=== PATIENT | female | born 1955 | race Caucasian/White ===

== ENCOUNTER 2018-07-28 15:36 | Emergency (ER) | payer OTHER ==
[2018-07-28 15:46] VITALS: BP 141/60
--- NOTE | 2018-07-28 15:50 | ED Physician Documentation ---
PD HPI UPPER EXT INJURY - Stated complaint Stated Complaint: RT FINGERS LAC - Chief complaint Chief Complaint: Laceration - History obtained from History obtained from: Patient - History of Present Illness Location: Right, Finger (index) Type of injury: Laceration (cutting potatoes) Where injury occurred: Home Timing - onset: Today Timing - details: Abrupt onset Worsened by: Palpating Associated symptoms: No: Weakness, Numbness Similar symptoms before: Has not had sx before Recently seen: Not recently seen Review of Systems Skin: reports: Laceration (s) Neurologic: denies: Focal weakness, Numbness PD PAST MEDICAL HISTORY - Past Medical History Cardiovascular: None Respiratory: None - Allergies Allergies/Adverse Reactions: Allergies Allergy/AdvReac Type Severity Reaction Status Date / Time No Known Drug Allergies Allergy Verified 07/28/18 15:45 PD ED PE NORMAL - Vitals Vital signs reviewed: Yes - General General: Alert and oriented X 3, No acute distress, Well developed/nourished - Derm Derm: Normal color, Warm and dry - Extremities Extremities: Other (right index finger with 2 cm laceration that still has some bleeding. Down to fatty tissue. Not involving nailbed nor crossing DIP. ) - Neuro Neuro: No motor deficit, No sensory deficit Procedures - Laceration (location) riht index finger Length in cm: 2 Wound type: Curved, Into subcut fat, Clean Neurovascular status: Sensory intact, Motor intact, Vascular intact Tendon involvement: No: Tendon Injury Anesthesia: Lidocaine 2% Wound Preparation: Irrigated copiously NS Skin layer closure: Nylon, Interrupted, Size #-0 - enter number (4) Other: Patient tolerated well, No complications, Neurovascular intact, Dressing applied, Tetanus UTD Complexity: Simple Departure - Departure Disposition: 01 Home, Self Care Clinical Impression: Laceration of index finger Qualifiers: Encounter type: initial encounter Damage to nail status: without damage Foreign body presence: without foreign body Laterality: right Qualified Code(s) : S61.210A - Laceration without foreign body of right index finger without damage to nail, initial encounter Condition: Stable Record reviewed to determine appropriate education?: Yes Instructions: ED Laceration Hand Follow-Up: TEREZA LUNDY PA-C [Primary Care Provider] - Comments: It is okay to wash and shower. Clean off the wound twice a day with soap and water, or peroxide and water. Apply some antibiotic ointment to it to keep it moist. Also to watch for signs of infection such as purulence, redness or increasing pain. Return to your primary care or the ER at the specified time for suture removal. Suture removal 9-10 days. For the thumb, keep the area clean and dry and allow the Steri-Strips to fall off on their own after a few days. That should be adequate for that small flap. Discharge Date/Time: 07/28/18 16:27
== END 2018-07-28 16:27 | disposition home or self-care (01) ==
LOC: ED 15:36
DX: S61.210A Laceration without foreign body of right index finger without damage to nail, initial encounter (principal); W27.4XXA Contact with kitchen utensil, initial encounter; Y93.G1 Activity, food preparation and clean up; Y92.009 Unspecified place in unspecified non-institutional (private) residence as the place of occurrence of the external cause
CPT/HCPCS: 12001; 99282; 99283

== ENCOUNTER 2022-03-13 11:45 | Outpatient (CLI) | payer MEDICARE, OTHER ==
[2022-03-13 18:54] LABS: BASOPHILS % (AUTO) 0.5 %; EOSINOPHILS # (AUTO) 0.1 10^3/uL (0.0-0.7); EOSINOPHILS % (AUTO) 1.6 %; HCT - HEMATOCRIT 40.7 % (37.0-47.0); HGB - HEMOGLOBIN 13.1 g/dL (12.0-16.0); LYMPHOCYTES # (AUTO) 3.3 10^3/uL (1.5-3.5); LYMPHOCYTES % (AUTO) 44.2 %; MEAN CORPUSCULAR HEMOGLOBIN 29.8 pg (27.0-31.0); MEAN CORPUSCULAR HGB CONC 32.2 g/dL (32.0-36.0); MEAN CORPUSCULAR VOLUME 92.7 fL (81.0-99.0); MEAN PLATELET VOLUME 10.6 fL (7.9-10.8); MONOCYTES # (AUTO) 0.5 10^3/uL (0.0-1.0); MONOCYTES % (AUTO) 6.6 %; NEUTROPHILS # (AUTO) 3.5 10^3/uL (1.5-6.6); NEUTROPHILS % (AUTO) 46.7 %; PLT - PLATELET COUNT 268 10^3/uL (130-450); RED BLOOD COUNT 4.39 10^6/uL (4.20-5.40); RED CELL DISTRIBUTION WIDTH 13.5 % (12.0-15.0); WHITE BLOOD COUNT 7.5 x10^3/uL (4.8-10.8)
[2022-03-13 19:26] LABS: ALBUMIN 3.8 g/dL (3.2-5.5); ALBUMIN/GLOBULIN RATIO 1.1 (1.0-2.2); ALKALINE PHOSPHATASE 83 IU/L (42-121); ALT ALANINE AMINOTRANSFERASE 23 IU/L (10-60); AST ASPARTATE AMINOTRANSFERASE 24 IU/L (10-42); BILIRUBIN,TOTAL 0.6 mg/dL (0.2-1.0); BUN - BLOOD UREA NITROGEN 8 mg/dL (6-20); CALCIUM 9.2 mg/dL (8.5-10.3); CARBON DIOXIDE - CO2 28 mmol/L (21-32); CHLORIDE 106 mmol/L (101-111); CHOL/HDL RATIO 1.7 (<4.4); CHOLESTEROL 139 mg/dL; CREATININE 0.9 mg/dL (0.4-1.0); GFR - MDRD 63 (>89); GLUCOSE 92 mg/dL (70-100); HDL CHOLESTEROL 83 mg/dL; LDL CHOLESTEROL,CALCULATED 44 mg/dL; LDL/HDL RATIO 0.5 (<4.4); POTASSIUM 3.8 mmol/L (3.5-5.0); SODIUM 143 mmol/L (135-145); TOTAL PROTEIN 7.2 g/dL (6.7-8.2); TRIGLYCERIDES 60 mg/dL; VLDL CHOLESTEROL 12 mg/dL
[2022-03-13 20:27] LABS: THYROID STIMULATING HORMONE 3.4 uIU/mL (0.34-5.60)
== END 2022-03-13 11:46 | disposition home or self-care (01) ==
LOC: LAB.N 11:45
PROVIDERS: ATTEND Nurse Practitioner Family
DX: E66.9 Obesity, unspecified (principal); E78.5 Hyperlipidemia, unspecified; Z13.1 Encounter for screening for diabetes mellitus; Z79.899 Other long term (current) drug therapy
CPT/HCPCS: 36415; 80053; 80061; 81599; 83036; 83721; 84443; 85025

== ENCOUNTER 2022-03-31 12:49 | Outpatient (CLI) | payer MEDICARE, OTHER ==
--- NOTE | 2022-03-31 14:07 | DEXA Report ---
PROCEDURE: Dexa Spine and/or Hip INDICATIONS: POST MENOPAUSAL TECHNIQUE: Dual energy x-ray absorptiometry (DXA) was performed on a Jeeran System. Regions measur ed are the AP Spine, femoral neck, and if needed forearm. COMPARISON: None. FINDINGS: Lumbar Spine: Bone Mineral Density 1.18 g/cm/cm,T score 0.1, normal Left Hip: Bone Mineral Density 0.896 g/cm/cm,T score -0.9, normal Left Femoral Neck: Bone Mineral Density 0.846 g/cm/cm, T score -1.4, osteopenia (T score greater or equal to -1.0: NORMAL) (T score from -1.1 to -2.4: OSTEOPENIA) (T score less than or equal to -2.5 to: OSTEOPOROSIS) Impression: Bone mineral density as detailed above. Patients with diagnosis of osteoporosis or osteopenia should have regular bone mineral density assess ment. For those eligible for Medicare, routine testing is allowed once every 2 years. Testing frequ ency can be increased for patients who have rapidly progressing disease or for those who are receivin g medical therapy to restore bone mass. Reviewed by: Shad Espino MD on 03/31/2022 2:06 PM PDT Approved by: Shad Espino MD on 03/31/2022 2:06 PM PDT Station ID: [id number]
== END 2022-03-31 12:50 | disposition home or self-care (01) ==
LOC: DI 12:49
PROVIDERS: ATTEND Nurse Practitioner Family
DX: Z13.820 Encounter for screening for osteoporosis (principal); Z78.0 Asymptomatic menopausal state; M85.88 Other specified disorders of bone density and structure, other site

== ENCOUNTER 2022-09-23 08:00 | Outpatient (CLI) | payer MEDICARE, OTHER ==
[2022-09-23 22:34] LABS: INFLUENZA A- RESP PCR PANEL NOT DETECTED; INFLUENZA B - RESP PCR PANEL NOT DETECTED; RSV- RESP PCR PANEL NOT DETECTED
[2022-09-23 22:37] LABS: SARS-CoV-2 -RESP PCR PANEL DETECTED
== END 2022-09-23 23:59 | disposition home or self-care (01) ==
LOC: LAB.N 08:00
PROVIDERS: ATTEND Physician Assistant
DX: U07.1 COVID-19 (principal)
CPT/HCPCS: 87637

== ENCOUNTER 2023-03-16 10:27 | Outpatient (CLI) | payer MEDICARE, OTHER ==
[2023-03-16 12:16] LABS: BASOPHILS # (AUTO) 0.1 10^3/uL (0.0-0.1); BASOPHILS % (AUTO) 0.7 %; EOSINOPHILS # (AUTO) 0.3 10^3/uL (0.0-0.7); EOSINOPHILS % (AUTO) 3.5 %; HCT - HEMATOCRIT 40.1 % (37.0-47.0); HGB - HEMOGLOBIN 12.8 g/dL (12.0-16.0); LYMPHOCYTES # (AUTO) 3.5 10^3/uL (1.5-3.5); LYMPHOCYTES % (AUTO) 47.1 %; MEAN CORPUSCULAR HEMOGLOBIN 29.4 pg (27.0-31.0); MEAN CORPUSCULAR HGB CONC 31.9 g/dL (32.0-36.0); MEAN PLATELET VOLUME 10.1 fL (7.9-10.8); MONOCYTES # (AUTO) 0.5 10^3/uL (0.0-1.0); MONOCYTES % (AUTO) 6.2 %; NEUTROPHILS # (AUTO) 3.1 10^3/uL (1.5-6.6); NEUTROPHILS % (AUTO) 42.1 %; PLT - PLATELET COUNT 251 10^3/uL (130-450); RED BLOOD COUNT 4.36 10^6/uL (4.20-5.40); RED CELL DISTRIBUTION WIDTH 13.2 % (12.0-15.0); WHITE BLOOD COUNT 7.4 x10^3/uL (4.8-10.8)
[2023-03-16 12:40] LABS: ALBUMIN 3.4 g/dL (3.2-5.5); ALBUMIN/GLOBULIN RATIO 1.1 (1.0-2.2); ALKALINE PHOSPHATASE 83 IU/L (42-121); ALT ALANINE AMINOTRANSFERASE 25 IU/L (10-60); AST ASPARTATE AMINOTRANSFERASE 25 IU/L (10-42); BILIRUBIN,TOTAL 0.4 mg/dL (0.2-1.0); BUN - BLOOD UREA NITROGEN 10 mg/dL (6-20); CALCIUM 8.8 mg/dL (8.5-10.3); CARBON DIOXIDE - CO2 28 mmol/L (21-32); CHLORIDE 110 mmol/L (101-111); CHOL/HDL RATIO 1.9 (<4.4); CHOLESTEROL 151 mg/dL; CREATININE 0.8 mg/dL (0.4-1.0); GFR - MDRD 72 (>89); GLUCOSE 112 mg/dL (70-100); HDL CHOLESTEROL 81 mg/dL; LDL CHOLESTEROL,CALCULATED 58 mg/dL; LDL/HDL RATIO 0.7 (<4.4); POTASSIUM 3.8 mmol/L (3.5-5.0); SODIUM 143 mmol/L (135-145); TOTAL PROTEIN 6.6 g/dL (6.7-8.2); TRIGLYCERIDES 62 mg/dL; VLDL CHOLESTEROL 12 mg/dL
[2023-03-16 12:46] LABS: THYROID STIMULATING HORMONE 4.94 uIU/mL (0.34-5.60)
[2023-03-16 12:51] LABS: ESTIMATED AVERAGE GLUCOSE 123 mg/dL (70-100); HEMOGLOBIN A1c% 5.9 % (4.27-6.07)
== END 2023-03-16 10:28 | disposition home or self-care (01) ==
LOC: LAB.N 10:27
PROVIDERS: ATTEND Nurse Practitioner Family
DX: E78.5 Hyperlipidemia, unspecified (principal); Z13.1 Encounter for screening for diabetes mellitus; Z79.899 Other long term (current) drug therapy
CPT/HCPCS: 36415; 80053; 80061; 83036; 83721; 84443; 85025

== ENCOUNTER 2023-04-23 12:35 | Day surgery (SDC) | payer MEDICARE, OTHER ==
[2023-04-23] MEDS ORDERED: LACTATED RINGERS 1,000 ML IV ONE (12:38)
[2023-04-23] MEDS ORDERED: PROPOFOL 500 MG/50 ML 500 MG/50 ML VIAL ONE (13:51)
--- NOTE | 2023-04-23 14:03 | ANESTHESIA ---
Pre-Anesthesia VS, & Labs - Diagnosis screening exam - Procedure colonoscopy Vital Signs: Temp Pulse Resp BP Pulse Ox O2 Flow Rate 36.4 C L 62 16 141/68 H 97 04/23/23 12:41 04/23/23 12:41 04/23/23 12:41 04/23/23 12:41 04/23/23 12:41 Height: 5 ft 2 in Weight (kg): 83 kg Body Mass Index: 33.5 BMI Classification: Obese - NPO >8 hours - Is Patient ?: No Home Medications and Allergies Home Medications: Ambulatory Orders Atorvastatin Calcium 40 mg PO DAILY 04/22/23 Omeprazole 20 mg PO BID 04/22/23 Atorvastatin Calcium 40 mg PO DAILY 04/22/23 Omeprazole 20 mg PO BID 04/22/23 Allergies/Adverse Reactions: Allergies Allergy/AdvReac Type Severity Reaction Status Date / Time No Known Drug Allergies Allergy Verified 04/22/23 13:34 Anes History & Medical History - Anesthetic History Anesthesia Complications: reports: No previous complications - Medical History Cardiovascular: reports: None, High cholesterol Pulmonary: reports: None Gastrointestinal: reports: GERD Urinary: reports: None Neuro: reports: None Musculoskeletal: reports: None Endocrine/Autoimmune: reports: None Skin: reports: None Smoking Status: Never smoker Psychosocial: reports: No issues indicated History of Cancer?: No - Surgical History Gynecologic: reports: section, Hysterectomy Exam General: Alert, Oriented x3, Cooperative, No acute distress Dental: WNL Mouth Openin Fingerbreadth Neck Mobility: Normal Mallampati classification: I Thyromental Distance: 4-6 cm Mental/Cognitive Status: Alert/Oriented X3, Normal for patient Plan Anesthesia Type: General, Total IV Consent for Procedure(s) Verified and Reviewed: Yes Code Status: Attempt Resuscitation ASA classification: 2-Mild systemic disease Is this case an emergency?: No
[2023-04-23] MEDS ORDERED: LACTATED RINGERS 600 ML IV ONE (14:50)
[2023-04-23 15:10] VITALS: BP 103/56
--- NOTE | 2023-04-23 19:49 | ANESTHESIA POST OP EVALUATION ---
Anesthesia Post Eval - Post Anesthesia Eval Vitals: Last Vital Signs Temp 36.1 C L 04/23/23 15:03 Pulse 60 04/23/23 15:03 Resp 16 04/23/23 15:03 BP 103/56 L 04/23/23 15:03 Pulse Ox 97 04/23/23 15:03 O2 Flow Rate CV Function Including HR & BP: Stable Pain Control: Satisfactory Nausea & Vomiting: Negative Mental Status: Baseline Respiratory Status: Airway Patent Hydration Status: Satisfactory Anesthesia Complications: None
== END 2023-04-23 12:36 | disposition home or self-care (01) ==
LOC: SDS 12:35
PROVIDERS: ATTEND Surgery
PROC: 0DBN8ZZ Excision of Sigmoid Colon, Via Natural or Artificial Opening Endoscopic (ICD-10-PCS; principal; 2023-04-23 13:45)
DX: Z12.11 Encounter for screening for malignant neoplasm of colon (principal); K63.5 Polyp of colon; K57.30 Diverticulosis of large intestine without perforation or abscess without bleeding; E66.9 Obesity, unspecified; Z68.33 Body mass index [BMI] 33.0-33.9, adult
CPT/HCPCS: 45380; J7120

== ENCOUNTER 2023-05-28 11:04 | Outpatient (CLI) | payer MEDICARE, OTHER ==
--- NOTE | 2023-05-28 11:51 | Sleep Patient Instructions ---
Sleep Center Visit Summary - Patient Visit Information Reason for Visit: Initial consult for evaluation of sleep disordered breathing and other sleep issues. - Patient Instructions Instructions Attached: Sleep Study, Sleep Clinic Visit Additional Instructions: You will be completing a sleep study, either an in-lab polysomnography (PSG) or home sleep study (HST). You will follow-up in the sleep care office after the sleep study is completed to hear the results and talk about therapy, if needed. You will be called by our office staff to schedule this appointment, but you may contact us with any questions. - Clinic Information Contact: [facility] [address] [place] [address] [email or web address] T: [phone]
--- NOTE | 2023-05-28 11:55 | SLEEP CARE CONSULTATION ---
Information from patient questionnaire entered by Gail Alanis. I have reviewed and concur with the information entered by Gail Alanis. This document represents the service I personally performed and the decisions made by me, aLkshmi Lawler ARNP. History of Present Illness Service Date and Time: 05/28/2023 1104 Reason for Visit: New patient Chief Complaint: reports: Snoring, Excessive daytime sleepiness, Fatigue, Frequent awakenings at night Usual bedtime: 3AM Time it takes to fall asleep: 30MIN Snores at night: Yes Observed to quit breathing while asleep: No Sleeps alone due to snoring: No Number of times waking at night: FEW Reasons for waking at night: reports: Bathroom, Other (UNKNOWN). denies: Choking, Snoring, Gasping for air Toss, Turn, or Twitch while sleeping: Yes Recalls having dreams: No Usually gets out of bed at: 10-11 AM depending on when gets to bed Feels refreshed in the morning: No Morning headache: Yes (3 times a week) Sleepy or fatigued during the day: Yes Ever fallen asleep while driving: No Takes day naps: Yes (2 times a week) Dreams during day naps: No Prior sleep studies: No Additional HPI information: I had the pleasure of seeing YVAN JAUREGUI today regarding the possibility of her having a sleep disorder. Her current complaints are snoring, excessive daytime sleepiness, fatigue and frequent night awakenings. She states that her and grandson have told her she snores very loud. She talked to her doctor about this and being "tired a lot". She was then referred here. Her has sleep apnea and is on a machine. She states she goes to bed between 1-3 AM because she has a grandson she has to sweet pickle maker from work between 1-3 AM. She can fall asleep in about 30 minutes usually, but sometimes it can take hours to fall asleep. She will lay in bed tossing and turning. She remembers waking up about 3 times a night on average when she turns in bed, for bathroom or from noises. She states she does wake up with headaches about 3 times a week but thinks this is from her sinus allergies. - Parasomnia Symptoms Ever been unable to move upon waking from sleep: No Walks in sleep: No Talks in sleep: No Ever acted out dreams in sleep: No Ever felt weak in the knees when startled or emotional: No Bothered by creepy, crawly, restless sensations in legs: Yes (couple times a week when in bed) Problems with memory or concentration: No Subjective Initial [place] Sleepiness Scale score: 9 (05/27/23) Past Medical History Past Medical History: reports: GERD, Other (borderline diabetic; high chol esterol) Social History The patient's occupation is a [employer]. Patient is and lives in [place]. Have you smoked in the past 12 months: No Alcohol use: Yes Alcohol amount and frequency: 1 GLASS 1X MONTH Caffeine use: Yes Caffeine amount and frequency: 1 CUP DAILY Family History Family history of sleep disordered breathing: No Allergies and Home Medications Known drug allergies: No Drug allergies reviewed: Yes Home medication list reviewed: Yes Allergy and home medication list: Allergies No Known Drug Allergies Allergy Medications: Omeprazole Atorvastation Review of Systems Weight gain over past 5 years: YES - 30 Cardiovascular: denies: high blood pressure Respiratory: denies: shortness of breath Gastrointestinal: denies: heartburn Neurological: denies: headaches Psychiatric: denies: anxiety, depression Ear/Nose/Throat: reports: sinus problems. denies: tonsillectomy Endocrine: reports: sluggishness, too hot or cold Immunologic: reports: sneezing Physical Exam Vital signs obtained and entered by: GAIL Coley MA Blood Pressure: 108/58 (LEFT ARM) Cuff size: regular Heart Rate: 65 O2 Saturation: 96 Height: 5 ft 2 in Weight: 184 lb Body Mass Index: 33.6 BMI Classification: Obese Neck circumference: 15 Mouth and throat: narrow oropharynx Soft palate: long Hard palate: normal Uvula: normal Uvula visualization: 25% Mallampati Class III Tongue: normal in size Tonsils: small Neck: normal w/o lymphadenopathy or thyromegaly Heart: regular rate and rhythm Lungs: clear bilaterally Impression and Plan 1. Suspected Obstructive Sleep Apnea-Hypopnea Syndrome, as suggested by a history of loud and irregular snoring, frequent awakening during the night, unrefreshed sleep, and excessive daytime sleepiness. Narrow oropharynx and obesity are common predisposing factors for obstructive sleep apnea-hypopnea syndrome. I recommend proceeding to polysomnography to confirm the diagnosis and to assess severity. If the patient has significant sleep disordered breathing, a manual CPAP titration study will also be performed to find the optimal treatment pressure. I informed the patient of what the sleep studies involve and after some discussion, obtained agreement to proceed. The pathophysiology of obstructive sleep apnea-hypopnea syndrome was discussed with the patient and health risks of cardiovascular and cerebrovascular disease if not treated. Risks of drowsy driving discussed in detail and patient advised to avoid long distance driving and to test puller at the first sign of drowsiness. Patient agreed to plan. * Schedule polysomnography +- manual CPAP titration study and return in 1-2 weeks after the study to discuss result and initiate therapy. * Avoid long distance driving or driving when feeling sleepy. * Avoid alcohol, sedative and muscle relaxant around bedtime. * Attempt to lose weight. * Review instructions provided by trained office staff on how to prepare for the sleep study. * Return for follow-up after sleep study completed. Counseling Topics: Weight loss health impact Visit Type: In Office Time Spent with Patient (minutes): 31 Provider Statement: I spent 100% of the Face to Face Visit with the patient with greater than 50% spent counseling the patient and coordination of care.
[2023-05-28 11:56] VITALS: BP 108/58
== END 2023-05-28 11:05 | disposition home or self-care (01) ==
LOC: SC 11:04
PROVIDERS: ATTEND Nurse Practitioner Family
DX: G47.10 Hypersomnia, unspecified (principal); R53.83 Other fatigue; G47.8 Other sleep disorders; R06.83 Snoring; E66.9 Obesity, unspecified; Z68.33 Body mass index [BMI] 33.0-33.9, adult
CPT/HCPCS: 99203; G0463; 99212

== ENCOUNTER 2023-06-15 19:38 | Outpatient (CLI) | payer MEDICARE, OTHER | END 2023-06-15 19:39 | disposition home or self-care (01) | LOC: SC 19:38 | PROVIDERS: ATTEND Nurse Practitioner Family | DX: G47.33 Obstructive sleep apnea (adult) (pediatric) (principal); E66.9 Obesity, unspecified; Z68.33 Body mass index [BMI] 33.0-33.9, adult | CPT/HCPCS: 95810 ==

== ENCOUNTER 2023-06-24 08:40 | Outpatient (CLI) | payer MEDICARE, OTHER ==
--- NOTE | 2023-06-24 09:20 | SLEEP CARE CONSULTATION ---
Information from patient questionnaire entered by Esteban Dominique. I have reviewed and concur with the information entered by Esteban Dominique. This document represents the service I personally performed and the decisions made by , Lakshmi Lawler ARNP. History of Present Illness Service Date and Time: 06/24/2023 0840 Initial [place] Sleepiness Scale score: 9 (05/27/23) Current [place] Sleepiness Scale score: 6 Additional HPI information: YVAN JAUREGUI returns for follow up and results of the recently performed polysomnography. Sleep study showed mild obstructive sleep apnea with an average AHI of 6.8 and bryan oxygen saturation 88%. I explained the pathophysiology behind obstructive sleep apnea. We then spent quite a bit of time discussing different treatment options. For mild obstructive sleep apnea, surgery and oral appliance are alternatives to nasal CPAP therapy but in moderate or severe cases, nasal CPAP is the most effective and reliable treatment. Because apnea is primarily in supine position, then positional management therapy could be effective. Methods discussed such as positioning with pillows, using a T-shirt with tennis balls in the back or commercial products that have a pillow format on back to prevent supine sleep. I reviewed the impact of weight changes on sleep apnea and strongly recommended losing weight. Patient counseled not drink alcohol less than 4 hours before bedtime as it can increase snoring and apnea. Patient was cautioned about risks of drowsy driving until sleepiness symptoms resolve. Patient denies drowsy driving. Sleep Study - Results Type of Sleep Study: Polysomnography Prior sleep studies: No Polysomnography/Home Sleep Study results: IMPRESSION: The quality of the study is good. The patient had reduced sleep efficiency due to sleep onset insomnia. The sleep architecture was abnormal for sleep fragmentation and reduced amount of time spent in REM and slow wave sleep (N3). Respiratory monitoring showed mild obstructive sleep apnea-hypopnea (AHI = 6.8) associated with frequent arousals, oxyhemoglobin desaturation and mild hypoxia (bryan oxygen saturation of 88%). The respiratory events occurred almost exclusively during supine sleep (supine AHI = 22.9; non-supine = 2.44). Snore was moderate in intensity. There was no significant periodic leg movement of sleep. Cardiac rhythm was normal sinus rhythm without significant arrhythmia. No abnormal behavior (parasomnia) observed during the night. Allergies and Home Medications Known drug allergies: No Drug allergies reviewed: Yes Home medication list reviewed: Yes (no changes) Allergy and home medication list: Allergies No Known Drug Allergies Allergy Review of Systems Review of systems same as previous: Yes (no changes) Physical Exam Vital signs obtained and entered by: Lakshmi Barrow NP Blood Pressure: 141/73 Cuff size: wrist (right) Heart Rate: 57 O2 Saturation: 98 Height: 5 ft 2 in Weight: 184 lb 6.4 oz Body Mass Index: 33.7 BMI Classification: Obese Impression and Plan 1. Obstructive Sleep Apnea-Hypopnea Syndrome, mild, with lowest oxygen saturation of 88%. Obviously this is the cause of the patients symptoms of unrefreshed sleep, and excessive daytime sleepiness. Positive pressure therapy could benefit gastric reflux and borderline diabetes. Since patients apnea is primarily in supine position, patient advised to try positional therapy and agreed with plan. She is also advised to lose weight as this will reduce snoring and apnea. An oral appliance can also be used for snoring but often is not covered by insurance. Follow up is scheduled for one month to check effectiveness. * Positional therapy * Attempt to lose weight. * Avoid alcohol consumption near bedtime. * Avoid supine sleep * The patient is again cautioned about driving until sleepiness completely resolves. * Return in one month. I will assess response to therapy at that time. Counseling Topics: Sleeping position, Weight loss health impact Visit Type: In Office Patient Location: Office Location of Provider: Office Time Spent with Patient (minutes): 20 Provider Statement: I spent 100% of the Face to Face Visit with the patient with greater than 50% spent counseling the patient and coordination of care.
[2023-06-24 09:28] VITALS: BP 141/73
== END 2023-06-24 08:41 | disposition home or self-care (01) ==
LOC: SC 08:40
PROVIDERS: ATTEND Nurse Practitioner Family
DX: G47.33 Obstructive sleep apnea (adult) (pediatric) (principal); E66.9 Obesity, unspecified; Z68.33 Body mass index [BMI] 33.0-33.9, adult
CPT/HCPCS: 99213; G0463; 99212

== ENCOUNTER 2023-07-29 13:06 | Outpatient (CLI) | payer MEDICARE, OTHER ==
--- NOTE | 2023-07-29 13:39 | Sleep Patient Instructions ---
Sleep Center Visit Summary - Patient Visit Information Reason for Visit: Positional Followup for sleep apnea - Patient Instructions Additional Instructions: You were here for follow up of Positional therapy. You will be continued on Postional therapy. You should follow up with sleep care in 3 months. You may contact us sooner for any questions or concerns. - Clinic Information Contact: [facility] [address] [place] [id number] [email or web address] T: [phone]
[2023-07-29 13:44] VITALS: BP 124/64; O2SAT 97
--- NOTE | 2023-07-29 13:44 | SLEEP CARE CONSULTATION ---
Information from patient questionnaire entered by Gail Alanis. I have reviewed and concur with the information entered by Gail Alanis. This document represents the service I personally performed and the decisions made by me, Lakshmi Lawler ARNP. History of Present Illness Service Date and Time: 07/29/2023 1306 Previous diagnosis: Mild, Obstructive Sleep Apnea-Hypopnea Syndrome AHI: 6.8 (in 05/2023) Reason for follow up: one month (F/U POSITIONAL THERAPY ) Prior sleep studies: No Type of Sleep Study: Polysomnography (06/14/2023) HPI additional information: YVAN JAUREGUI was diagnosed to have mild, AHI 6.8, obstructive sleep apnea-hypopnea syndrome and returned today for Positional therapy, one month follow-up. Sleep Study - Results Type of Sleep Study: Polysomnography Prior sleep studies: No CPAP Compliance Data Compliance data discussion: She states she is able to sleep on her side without a problem. She is using a wedge pillow to keep herself on her side. Subjective On therapy, patient: reports: sleeping better, awakening more refreshed, being more awake and alert during the day, more rested overall. denies: drowsiness while driving Initial [place] Sleepiness Scale score: 9 (05/27/23) Current [place] Sleepiness Scale score: 4 (07/29/23) Allergies and Home Medications Known drug allergies: No Drug allergies reviewed: Yes Home medication list reviewed: Yes (no changes) Allergy and home medication list: Allergies No Known Drug Allergies Allergy (Verified 07/28/23 11:14) Review of Systems Review of systems same as previous: Yes (no changes) Physical Exam Vital signs obtained and entered by: GAIL Coley MA Blood Pressure: 124/64 (LEFT ARM) Cuff size: regular Heart Rate: 64 O2 Saturation: 97 Height: 5 ft 2 in Weight: 181 lb 9.6 oz Weight change since last visit: 3 lbs Body Mass Index: 33.2 BMI Classification: Obese Impression and Plan 1. Obstructive Sleep Apnea-Hypopnea Syndrome, mild. Using positional therapy, the patient has better sleep quality and is more rested overall. Patient states she has been able to maintain sleeping on her sides with her wedge pillow. She has noticed that she is waking up and doing things rather than going back to sleep. She also has more energy during the day. 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 She feels that she can maintain doing the positional therapy for controlling her sleep apnea. I will have her come back in 3 months for another check-in. Patient's apnea severity and rationale for treatment to reduce apnea, improve sleep quality and reduce cardiovascular and cerebrovascular events was reviewed. 2. Obesity, unspecified. Currently patients BMI is 33.2. Obesity increases the risk of apnea, CPAP pressure requirements and overall health risks especially cardiovascular and diabetes. Thus patient is advised to lose weight. -Continue positional therapy -Continue to try to lose weight -Call this office if any problems -Return for follow up in 3 months, or sooner if concerns arise Counseling Topics: Weight loss health impact Follow up with Sleep Care in: 3 months Visit Type: In Office Time Spent with Patient (minutes): 15 Provider Statement: I spent 100% of the Face to Face Visit with the patient with greater than 50% spent counseling the patient and coordination of care.
== END 2023-07-29 13:07 | disposition home or self-care (01) ==
LOC: SC 13:06
PROVIDERS: ATTEND Nurse Practitioner Family
DX: G47.33 Obstructive sleep apnea (adult) (pediatric) (principal); E66.9 Obesity, unspecified; Z68.33 Body mass index [BMI] 33.0-33.9, adult
CPT/HCPCS: 99212; G0463

== ENCOUNTER 2023-10-27 12:54 | Outpatient (CLI) | payer MEDICARE, OTHER ==
--- NOTE | 2023-10-27 13:13 | Sleep Patient Instructions ---
Sleep Center Visit Summary - Patient Visit Information Reason for Visit: 3 month followup for positional therapy - Patient Instructions Additional Instructions: You were here for follow up of Positional therapy. You will be continued on Positional therapy. You should follow up with sleep care in 12 months. You may contact us sooner for any questions or concerns. - Clinic Information Contact: [facility] [address] [place] [id number] [email or web address] T: [phone]
--- NOTE | 2023-10-27 13:19 | SLEEP CARE CONSULTATION ---
Information from patient questionnaire entered by Gail Alanis. I have reviewed and concur with the information entered by Gail Alanis. This document represents the service I personally performed and the decisions made by me, Lakshmi Lawler ARNP. History of Present Illness Service Date and Time: 10/27/2023 1254 Previous diagnosis: Mild, Obstructive Sleep Apnea-Hypopnea Syndrome AHI: 6.8 (in 05/2023) Reason for follow up: three month (F/U POSITIONAL) Prior sleep studies: No Type of Sleep Study: Polysomnography HPI additional information: YVAN JAUREGUI was diagnosed to have mild, AHI 6.8, obstructive sleep apnea-hypopnea syndrome and returned today for Positional therapy three month follow-up. Sleep Study - Results Type of Sleep Study: Polysomnography Prior sleep studies: No CPAP Compliance Data Compliance data discussion: She is using a wedge pillow to keep her off her back. She says it is working well and is maintainable. Subjective On therapy, patient: reports: sleeping better, awakening more refreshed, being more awake and alert during the day, more rested overall. denies: drowsiness while driving Initial Tina Sleepiness Scale score: 9 (05/27/23) Current Tina Sleepiness Scale score: 2 Allergies and Home Medications Known drug allergies: No Drug allergies reviewed: Yes Home medication list reviewed: Yes (no changes) Allergy and home medication list: Allergies No Known Drug Allergies Allergy (Verified 10/26/23 09:17) Review of Systems Review of systems same as previous: Yes (no changes) Physical Exam Vital signs obtained and entered by: GAIL Coley MA Blood Pressure: 152/81 Cuff size: wrist (right) Heart Rate: 56 O2 Saturation: 99 Height: 5 ft 2 in Weight: 187 lb 9.6 oz Weight change since last visit: 6 lbs gain Body Mass Index: 34.3 BMI Classification: Obese Impression and Plan 1. Obstructive Sleep Apnea-Hypopnea Syndrome, mild. Using positional therapy, the patient has better sleep quality and is more rested overall. She has a history of gastric reflux and borderline diabetes. Patient is doing well with the positional therapy, using a wedge pillow to keep off her back while sleeping. Her Tina has reduced from 9/24 to 2/24 and she is feeling like she is sleeping well through the night. She feels like she can maintain sleeping on her side to control apnea. We will continue positional therapy and follow-up with her next year. Patient's apnea severity and rationale for treatment to reduce apnea, improve sleep quality and reduce cardiovascular and cerebrovascular events was reviewed. 2. Obesity, unspecified. Currently patients BMI is 34.3. Obesity increases the risk of apnea, CPAP pressure requirements and overall health risks especially cardiovascular and diabetes. Thus patient is advised to lose weight. -Continue positional therapy -Attempt to lose weight -Call this office if any problems -Return for follow up in 12 months, or sooner if concerns arise Counseling Topics: Sleeping position, Weight loss health impact Follow up with Sleep Care in: 1 year Visit Type: In Office Time Spent with Patient (minutes): 14 Provider Statement: I spent 100% of the Face to Face Visit with the patient with greater than 50% spent counseling the patient and coordination of care.
[2023-10-27 13:33] VITALS: BP 152/81; O2SAT 99
== END 2023-10-27 12:55 | disposition home or self-care (01) ==
LOC: SC 12:54
PROVIDERS: ATTEND Nurse Practitioner Family
DX: G47.33 Obstructive sleep apnea (adult) (pediatric) (principal); E66.9 Obesity, unspecified; Z68.34 Body mass index [BMI] 34.0-34.9, adult
CPT/HCPCS: 99212; G0463